=== PATIENT | female | born 1960 | race Caucasian/White ===

== ENCOUNTER 2021-08-22 13:32 | Emergency (ER) | payer OTHER | END 2021-08-22 16:49 | disposition home or self-care (01) | LOC: FER 13:32 | DX: U07.1 COVID-19 (principal); I10 Essential (primary) hypertension; E11.9 Type 2 diabetes mellitus without complications; Z23 Encounter for immunization; Z91.040 Latex allergy status; Z79.84 Long term (current) use of oral hypoglycemic drugs | CPT/HCPCS: M0245; Q0245 ==

== ENCOUNTER 2022-03-06 17:02 | Emergency (ER) | payer OTHER ==
[2022-03-06 18:38] LABS: BASOPHIL 0.2 % (0-2); EOSINOPHIL 0.7 % (0-5); HCT 38.5 % (37.0-47.0); HGB 12.8 g/dl (12.5-16.0); LYMPHOCYTE 4.4 % (15-48); MCH 29.2 pg (25.0-31.0); MCHC 33.2 g/dL (32.0-36.0); MCV 87.7 fL (78.0-100.0); NEUTROPHIL 90.4 % (41-80); NRBC 0; PLT 218 K/uL (150-400); RBC 4.39 M/uL (4.20-5.40); RDW 12.4 % (11.5-14.0); WBC 9.7 K/uL (4.0-10.5)
[2022-03-06 18:57] LABS: ALBUMIN 3.4 g/dL (3.4-5.0); BILIRUBIN - TOTAL 0.8 mg/dL (0.2-1.0); BUN/CREAT RATIO (CALC) 24.1 RATIO; CREATININE 0.58 mg/dL (0.51-0.95); GLOBULIN (CALCULATION) 4.2 g/dL; POTASSIUM 3.9 mmol/L (3.5-5.1); TOTAL PROTEIN 7.6 g/dL (6.4-8.2)
[2022-03-06 19:26] LABS: CORONAVIRUS 2019 SARS-COV-2 NEGATIVE (NEGATIVE); INFLUENZA A NAA NEGATIVE (NEGATIVE)
[2022-03-06] MEDS ORDERED: ONDANSETRON ODT4 MG PO ×2 (19:55→20:18)
== END 2022-03-06 20:02 | disposition home or self-care (01) ==
LOC: FER 17:02
PROVIDERS: Nurse Practitioner Family
DX: R11.2 Nausea with vomiting, unspecified (principal); R19.7 Diarrhea, unspecified; E11.9 Type 2 diabetes mellitus without complications; Z20.822 Contact with and (suspected) exposure to COVID-19; Z79.84 Long term (current) use of oral hypoglycemic drugs; Z91.040 Latex allergy status
CPT/HCPCS: 36415; 80053; 83690; 84484; 85025; 93005; J2405; J7030; U0002